=== PATIENT | female | born 1980 | race Caucasian/White ===

== ENCOUNTER 2018-07-09 09:44 | Inpatient (IN) | payer OTHER ==
[~2018-07-09] VITALS: Ht 165.1 cm; Wt 63.1 kg
--- NOTE | 2018-07-09 10:04 | NUR ---
Pt assessed. [facility] for SI. Pt is [place] speaking, daughter at BS. Per daughter, pt was recently hospialized with weakness and was dx with DM. Since d/c home, daughter states that she has been "saying she loves us like she is saying goodbye", and has been having increased trouble walking in past few weeks. Per daughter, this am pt stated her "feet and hands are numb and I could stab them with a knife and would not feel it." Pt has not been sleeping per daughter. This am, family was driving and pt stated she wanted to jump from the car so they stopped the car and pt laid down on the ground and per daughter "started shaking and then closed her eyes and has not opened them since." No previous attempts or psychiatric hx per daughter. Per daughter, no drug or alcohol use. Pt responds only to painful stimuli, will not open eyes. VS stable Room cleared for SISIMRAN at . Will cont to monitor
--- NOTE | 2018-07-09 10:42 | NUR ---
SITTER MONITORING FROM HALLWAY FOR SAFETY. 5 LEAD MONITORING IN PROGRESS. REAR CURTAIN UP FOR MONITORING. FAMILY AT BEDSIDE.
[2018-07-09 10:51] LABS: BASOPHILS % (AUTO) 0 % (0-1); EOSINOPHILS % (AUTO) 0 % (1-7); LYMPHOCYTES # (AUTO) 0.58 x10^3/uL (1-3.4); LYMPHOCYTES % (AUTO) 6 % (22-44); MD NO; MEAN CORPUSCULAR HEMOGLOBIN 32.3 pg (27.0-34.8); MEAN CORPUSCULAR HGB CONC 33.6 g/dL (32.4-35.8); MEAN CORPUSCULAR VOLUME 96.2 fL (80-100); MEAN PLATELET VOLUME 7.5 fL (7.4-10.4); MONOCYTES % (AUTO) 4 % (2-9); NEUTROPHILS # (AUTO) 8.45 x10^3/uL (1.8-6.8); NEUTROPHILS % (AUTO) 90 % (42-75); PLATELET COUNT 184 x10^3/uL (130-400); RED CELL DISTRIBUTION WIDTH 13.4 % (9.6-15.2)
--- NOTE | 2018-07-09 10:52 | NUR ---
Shannan notified of BS 119
[2018-07-09 10:58] LABS: HCG UR SG 1.015 (1.003-1.030); MICROSCOPIC INDICATED
[2018-07-09 10:59] LABS: CULTURE INDICATED? YES
[2018-07-09 11:00] LABS: AMPHETAMINE SCREEN, URINE Negative (Negative); BARBITURATE SCREEN, URINE Negative (Negative); BENZODIAZEPINE SCREEN, URINE Negative (Negative); CANNABINOID SCREEN, URINE Negative (Negative); COCAINE SCREEN, URINE Negative (Negative); METHADONE SCREEN, URINE Negative (Negative); OPIATE SCREEN, URINE Negative (Negative)
[2018-07-09 11:03] LABS: ALBUMIN 3.2 g/dL (3.4-5.0); CALCIUM 8.2 mg/dL (8.5-10.1)
[2018-07-09 11:11] LABS: ANION GAP 12 mmol/L (5-15); CHLORIDE 110 mmol/L (98-107)
[2018-07-09 11:13] LABS: ALANINE AMINOTRANSFERASE 68 U/L (12-78); ALKALINE PHOSPHATASE 73 U/L (45-117); BILIRUBIN,TOTAL 1.4 mg/dL (0.2-1.0); CREATININE 0.54 mg/dL (0.55-1.02); FREE T4 (FREE THYROXINE) 1.44 ng/dL (0.76-1.46); TOTAL PROTEIN 6.2 g/dL (6.4-8.2)
[2018-07-09 11:15] LABS: SALICYLATE LEVEL < 1.7 mg/dL (2.8-20.0)
--- NOTE | 2018-07-09 11:19 | NUR ---
Shannan notified of Potassium level 2.4
--- NOTE | 2018-07-09 11:20 | NUR ---
Pt now denying SI. Pt stating that she does not recall what happened this am. Pt remains cooperative and calm. Will cont to monitor
[2018-07-09] MEDS ORDERED: POTASSIUM CHLORIDE 40 MEQ in SODIUM CHLORIDE 0.9% 500 ML IV ONE (12:00)
[2018-07-09] MEDS ORDERED: POTASSIUM CHLORIDE 20 MEQ TAB.ER.PRT ONE (12:00)
[2018-07-09] MEDS ORDERED: PLEASE ENTER ALLERGIES MC SCH (12:00)
[2018-07-09] MEDS ORDERED: CEFTRIAXONE PMX 1GM/50ML 50 ML IV ONE (12:00)
[2018-07-09] MEDS ORDERED: CEFTRIAXONE PMX 1GM/50ML 50 ML ONE (12:00)
[2018-07-09] MEDS ORDERED: POTASSIUM CHLORIDE 20 MEQ TAB.ER.PRT PO ONE (12:00)
--- NOTE | 2018-07-09 12:11 | NUR ---
LUNCH RN: PT MEDICATED PER MAR FOR LOW K+ AND STARTED ABX. PT CONNECTED TO ALL MONITORING, HTN NOTED. EDEN. SITTER IN [place] FOR CONTINUOUS MONITORING, AWAITING ADMIT ORDER AT THIS TIME.
--- NOTE | 2018-07-09 12:29 | NUR ---
LUNCH RN: MD TO BEDSIDE TO UPDATE PT AND FAMILY ON POC
--- NOTE | 2018-07-09 13:42 | NUR ---
Pt asleep at this time. NAD. Will cont to monitor
--- NOTE | 2018-07-09 14:32 | NUR ---
Rounded on pt. Reports she is feeling better, dozing intermittently. Family at BS, updated on POC.
[2018-07-09] MEDS ORDERED: INSU100V13 SQ (14:35)
[2018-07-09] MEDS ORDERED: INSU100I18 SQ (14:36)
[2018-07-09] MEDS ORDERED: LISI-420 PO (14:37)
[2018-07-09] MEDS ORDERED: SPIR25TA5 PO (14:38)
[2018-07-09] MEDS ORDERED: METF10007 PO (14:38)
[2018-07-09] MEDS ORDERED: POTA10TA31 PO (14:40)
[2018-07-09] MEDS ORDERED: MAGN400T50 PO (14:41)
[2018-07-09] MEDS ORDERED: ERGO500017 PO (14:42)
--- NOTE | 2018-07-09 15:41 | NUR ---
Ready for transfer, report to Jose COCHRAN
[2018-07-09 16:16] VITALS: BP 152/88
[2018-07-09] MEDS ORDERED: morphine SULFATE 10 MG/ML, 1ML IVPush PRN (17:30)
[2018-07-09] MEDS ORDERED: PROMETHAZINE 25 MG/ML, 1ML IM PRN (17:30)
[2018-07-09] MEDS ORDERED: ONDANSETRON 2MG/ML, 2ML IVPush PRN (17:30)
[2018-07-09] MEDS: INSULIN LISPRO 100 UNITS/ML, PEN SQ-INSULIN SCH ×2 (17:30→21:03)
[2018-07-09] MEDS ORDERED: ACETAMINOPHEN 325 MG TABLET PO PRN (17:30)
[2018-07-09] MEDS ORDERED: ONDANSETRON ODT 4 MG PO PRN (17:30)
[2018-07-09] MEDS ORDERED: OXYcodone IR 5MG TABLET PO PRN (17:30)
[2018-07-09] MEDS: POTASSIUM CHLORIDE 20 MEQ TAB.ER.PRT PO SCH (18:23)
[2018-07-09] MEDS: POTASSIUM CHLORIDE 40 MEQ in D5%-0.9% NACL 1,000 ML IV SCH (18:23)
[2018-07-09] MEDS: ERGOCALCIFEROL 50,000 UNIT CAPSULE PO SCH (18:23)
[2018-07-09 18:28] LABS: HEMOGLOBIN A1C 10.4 % (4.2-6.3)
[2018-07-09 19:14] VITALS: BP 149/89
[2018-07-09] MEDS: INSULIN GLARGINE 100 UNITS/ML, PEN SQ-INSULIN SCH (21:04)
[2018-07-09] MEDS: GABAPENTIN 100 MG CAPSULE PO SCH (21:04)
[2018-07-10 00:41] VITALS: BP 164/93
[2018-07-10] MEDS: POTASSIUM CHLORIDE 40 MEQ in D5%-0.9% NACL 1,000 ML IV SCH (02:42)
[2018-07-10 05:40] LABS: BASOPHILS # (AUTO) 0.02 x10^3/uL (0-0.1); BASOPHILS % (AUTO) 0 % (0-1); EOSINOPHILS % (AUTO) 0 % (1-7); LYMPHOCYTES # (AUTO) 0.79 x10^3/uL (1-3.4); LYMPHOCYTES % (AUTO) 10 % (22-44); MD NO; MEAN CORPUSCULAR HEMOGLOBIN 31.4 pg (27.0-34.8); MEAN CORPUSCULAR HGB CONC 32.6 g/dL (32.4-35.8); MEAN CORPUSCULAR VOLUME 96.4 fL (80-100); MEAN PLATELET VOLUME 7.7 fL (7.4-10.4); MONOCYTES # (AUTO) 0.39 x10^3/uL (0.2-0.8); MONOCYTES % (AUTO) 5 % (2-9); NEUTROPHILS # (AUTO) 7.19 x10^3/uL (1.8-6.8); NEUTROPHILS % (AUTO) 86 % (42-75); PLATELET COUNT 161 x10^3/uL (130-400); RED BLOOD COUNT 4.51 x10^6/uL (3.82-5.3); RED CELL DISTRIBUTION WIDTH 13.7 % (9.6-15.2)
[2018-07-10 06:03] LABS: ALBUMIN 2.7 g/dL (3.4-5.0); CALCIUM 7.9 mg/dL (8.5-10.1); CHLORIDE 114 mmol/L (98-107)
[2018-07-10 06:09] LABS: ALANINE AMINOTRANSFERASE 63 U/L (12-78); ALKALINE PHOSPHATASE 68 U/L (45-117); ANION GAP 8 mmol/L (5-15); BILIRUBIN,TOTAL 1.2 mg/dL (0.2-1.0); CHOL/HDL RATIO 2.8; CHOLESTEROL, TOTAL 117 mg/dL (140-239); CREATININE 0.56 mg/dL (0.55-1.02); HDL CHOL % 36 % (28-40); HDL CHOLESTEROL (DIRECT) 42 mg/dL (40-60); LDL CHOLESTEROL,CALCULATED 48 mg/dL (54-169); LDL/HDL RATIO 1.1 (0.5-3.0); TOTAL PROTEIN 5.4 g/dL (6.4-8.2); TRIGLYCERIDES 135 mg/dL (50-200); VLDL CHOLESTEROL 27 mg/dL (0-25)
[2018-07-10 06:57] VITALS: BP 150/89
[2018-07-10] MEDS: LISINOPRIL 20 MG TABLET PO SCH (10:15)
[2018-07-10] MEDS: SPIRONOLACTONE 25 MG TABLET PO SCH (10:15)
[2018-07-10] MEDS: MAGNESIUM OXIDE 400 MG TABLET PO SCH (10:15)
[2018-07-10] MEDS: POTASSIUM CHLORIDE 20 MEQ TAB.ER.PRT PO SCH ×2 (10:15→16:47)
[2018-07-10] MEDS: GABAPENTIN 100 MG CAPSULE PO SCH ×3 (10:15→20:40)
[2018-07-10] MEDS: INSULIN LISPRO 100 UNITS/ML, PEN SQ-INSULIN SCH ×4 (10:15→20:39)
[2018-07-10] MEDS ORDERED: CEFTRIAXONE PMX 1GM/50ML 50 ML IV SCH (11:00)
[2018-07-10 13:27] VITALS: BP 157/92
[2018-07-10] MEDS ORDERED: INSU100I11 SQ-INSULIN (14:47)
[2018-07-10] MEDS ORDERED: INSU100I13 SQ-INSULIN (14:47)
[2018-07-10] MEDS ORDERED: POTA20TA14 PO (14:47)
[2018-07-10] MEDS ORDERED: GABA-826 PO (14:47)
[2018-07-10] MEDS ORDERED: CEFD300C37 PO (14:47)
[2018-07-10] MEDS ORDERED: SERT50TA PO (14:49)
[2018-07-10] MEDS: SERTRALINE 50MG TABLET PO SCH (16:47)
[2018-07-10] MEDS: CEFDINIR 300 MG CAPSULE PO SCH (20:37)
[2018-07-10] MEDS: INSULIN GLARGINE 100 UNITS/ML, PEN SQ-INSULIN SCH (20:40)
[2018-07-10 21:17] VITALS: BP 161/101
[2018-07-10 21:28] VITALS: BP 167/95
[2018-07-10] MEDS ORDERED: DIPHENHYDRAMINE 50 MG CAPSULE PO PRN (22:00)
[2018-07-11] VITALS (7 sets, daily range): BP systolic 143–217; BP diastolic 85–115
[2018-07-11] MEDS: hydrALAzine 20 MG/ML, 1ML IVPush PRN ×2 (01:26→13:21)
[2018-07-11] MEDS: MAGNESIUM OXIDE 400 MG TABLET PO SCH (08:02)
[2018-07-11] MEDS: SERTRALINE 50MG TABLET PO SCH (08:03)
[2018-07-11] MEDS: SPIRONOLACTONE 25 MG TABLET PO SCH (08:03)
[2018-07-11] MEDS: LISINOPRIL 20 MG TABLET PO SCH (08:03)
[2018-07-11] MEDS: CEFDINIR 300 MG CAPSULE PO SCH ×2 (08:03→20:10)
[2018-07-11] MEDS: GABAPENTIN 100 MG CAPSULE PO SCH ×3 (08:04→20:11)
[2018-07-11] MEDS: POTASSIUM CHLORIDE 20 MEQ TAB.ER.PRT PO SCH ×3 (08:04→20:11)
[2018-07-11] MEDS: INSULIN LISPRO 100 UNITS/ML, PEN SQ-INSULIN SCH ×5 (08:08→20:04)
[2018-07-11 09:46] LABS: ANION GAP 8 mmol/L (5-15); CHLORIDE 111 mmol/L (98-107); CREATININE 0.65 mg/dL (0.55-1.02)
[2018-07-11] MEDS ORDERED: POTA20TA14 PO (16:43)
[2018-07-11] MEDS ORDERED: POTASSIUM CHLORIDE 40 MEQ in SODIUM CHLORIDE 0.9% 500 ML IV ONE (17:00)
[2018-07-11] MEDS: INSULIN GLARGINE 100 UNITS/ML, PEN SQ-INSULIN SCH (20:11)
[2018-07-12 00:25] VITALS: BP 166/101
[2018-07-12 00:34] VITALS: BP 166/101
[2018-07-12] MEDS: hydrALAzine 20 MG/ML, 1ML IVPush PRN (00:35)
[2018-07-12 00:58] VITALS: BP 139/87
[2018-07-12 05:40] LABS: ANION GAP 8 mmol/L (5-15); CALCIUM 8.9 mg/dL (8.5-10.1); CHLORIDE 116 mmol/L (98-107); CREATININE 0.66 mg/dL (0.55-1.02)
[2018-07-12 07:31] VITALS: BP 150/92
[2018-07-12] MEDS: CEFDINIR 300 MG CAPSULE PO SCH ×2 (08:37→21:17)
[2018-07-12] MEDS: GABAPENTIN 100 MG CAPSULE PO SCH ×3 (08:37→21:17)
[2018-07-12] MEDS: POTASSIUM CHLORIDE 20 MEQ TAB.ER.PRT PO SCH ×3 (08:37→21:17)
[2018-07-12] MEDS: SERTRALINE 50MG TABLET PO SCH (08:38)
[2018-07-12] MEDS: SPIRONOLACTONE 25 MG TABLET PO SCH (08:38)
[2018-07-12] MEDS: MAGNESIUM OXIDE 400 MG TABLET PO SCH (08:38)
[2018-07-12] MEDS: INSULIN LISPRO 100 UNITS/ML, PEN SQ-INSULIN SCH ×4 (08:39→21:19)
[2018-07-12] MEDS: LISINOPRIL 20 MG TABLET PO SCH (08:39)
[2018-07-12 12:49] VITALS: BP 153/93
[2018-07-12] MEDS ORDERED: GADOBUTROL 7.5 MMOL/7.5 ML PFS ONE (16:00)
[2018-07-12] MEDS ORDERED: OMNIPAQUE 350 MG/ML, 100ML BOTTLE ONE (16:29)
[2018-07-12 19:17] VITALS: BP 159/92
[2018-07-12] MEDS: INSULIN GLARGINE 100 UNITS/ML, PEN SQ-INSULIN SCH (21:19)
[2018-07-12] MEDS ORDERED: DEXAMETHASONE 1 MG TABLET PO ONE (23:00)
[2018-07-13 00:47] VITALS: BP 152/89
[2018-07-13 07:10] VITALS: BP 147/93
[2018-07-13] MEDS: POTASSIUM CHLORIDE 20 MEQ TAB.ER.PRT PO SCH ×3 (08:35→21:00)
[2018-07-13] MEDS: SPIRONOLACTONE 25 MG TABLET PO SCH (08:35)
[2018-07-13] MEDS: CEFDINIR 300 MG CAPSULE PO SCH ×2 (08:35→21:00)
[2018-07-13] MEDS: GABAPENTIN 100 MG CAPSULE PO SCH ×3 (08:35→21:00)
[2018-07-13] MEDS: MAGNESIUM OXIDE 400 MG TABLET PO SCH (08:35)
[2018-07-13] MEDS: LISINOPRIL 20 MG TABLET PO SCH (08:35)
[2018-07-13] MEDS: INSULIN LISPRO 100 UNITS/ML, PEN SQ-INSULIN SCH ×4 (08:36→21:02)
[2018-07-13] MEDS: SERTRALINE 50MG TABLET PO SCH (08:36)
[2018-07-13 09:45] LABS: ANION GAP 7 mmol/L (5-15); CALCIUM 8.5 mg/dL (8.5-10.1); CHLORIDE 113 mmol/L (98-107); CREATININE 0.65 mg/dL (0.55-1.02)
[2018-07-13 14:00] VITALS: BP 163/101
[2018-07-13] MEDS ORDERED: POTASSIUM CHLORIDE 40 MEQ in SODIUM CHLORIDE 0.9% 500 ML IV ONE (14:00)
[2018-07-13 19:08] VITALS: BP 150/91
[2018-07-13] MEDS: INSULIN GLARGINE 100 UNITS/ML, PEN SQ-INSULIN SCH (21:01)
[2018-07-14 00:44] VITALS: BP 154/94
[2018-07-14] MEDS: POTASSIUM CHLORIDE 20 MEQ TAB.ER.PRT PO SCH ×3 (08:44→21:34)
[2018-07-14] MEDS: SERTRALINE 50MG TABLET PO SCH (08:44)
[2018-07-14 08:45] VITALS: BP 144/89
[2018-07-14] MEDS: CEFDINIR 300 MG CAPSULE PO SCH ×2 (08:45→21:34)
[2018-07-14] MEDS: SPIRONOLACTONE 25 MG TABLET PO SCH (08:45)
[2018-07-14] MEDS: MAGNESIUM OXIDE 400 MG TABLET PO SCH (08:45)
[2018-07-14] MEDS: GABAPENTIN 100 MG CAPSULE PO SCH ×3 (08:45→21:35)
[2018-07-14] MEDS: LISINOPRIL 20 MG TABLET PO SCH (08:46)
[2018-07-14] MEDS: INSULIN LISPRO 100 UNITS/ML, PEN SQ-INSULIN SCH ×4 (08:47→21:36)
[2018-07-14 12:45] LABS: ALBUMIN 2.8 g/dL (3.4-5.0); ANION GAP 9 mmol/L (5-15); CALCIUM 8.4 mg/dL (8.5-10.1); CHLORIDE 111 mmol/L (98-107)
[2018-07-14 12:49] LABS: ALANINE AMINOTRANSFERASE 107 U/L (12-78); ALKALINE PHOSPHATASE 79 U/L (45-117); BILIRUBIN,TOTAL 1.3 mg/dL (0.2-1.0); CREATININE 0.66 mg/dL (0.55-1.02); TOTAL PROTEIN 5.8 g/dL (6.4-8.2)
[2018-07-14] MEDS: SODIUM CHLORIDE 0.45% 1,000 ML IV SCH (14:23)
[2018-07-14 15:48] VITALS: BP 148/90
[2018-07-14 18:53] VITALS: BP 118/72
[2018-07-14] MEDS: INSULIN GLARGINE 100 UNITS/ML, PEN SQ-INSULIN SCH (21:35)
[2018-07-15] MEDS: SODIUM CHLORIDE 0.45% 1,000 ML IV SCH ×3 (00:21→21:08)
[2018-07-15 01:42] VITALS: BP 142/75
[2018-07-15 06:18] LABS: ALBUMIN 2.6 g/dL (3.4-5.0); ANION GAP 6 mmol/L (5-15); CALCIUM 7.9 mg/dL (8.5-10.1); CHLORIDE 110 mmol/L (98-107)
[2018-07-15 06:22] LABS: ALANINE AMINOTRANSFERASE 131 U/L (12-78); ALKALINE PHOSPHATASE 81 U/L (45-117); BILIRUBIN,TOTAL 1.2 mg/dL (0.2-1.0); CREATININE 0.56 mg/dL (0.55-1.02); TOTAL PROTEIN 5.5 g/dL (6.4-8.2)
[2018-07-15] MEDS: INSULIN LISPRO 100 UNITS/ML, PEN SQ-INSULIN SCH ×4 (08:37→21:00)
[2018-07-15 08:42] VITALS: BP 136/87
[2018-07-15] MEDS: GABAPENTIN 100 MG CAPSULE PO SCH ×3 (10:03→20:59)
[2018-07-15] MEDS: LISINOPRIL 20 MG TABLET PO SCH (10:03)
[2018-07-15] MEDS: CEFDINIR 300 MG CAPSULE PO SCH ×2 (10:03→20:58)
[2018-07-15] MEDS: MAGNESIUM OXIDE 400 MG TABLET PO SCH (10:03)
[2018-07-15] MEDS: SPIRONOLACTONE 25 MG TABLET PO SCH (10:03)
[2018-07-15] MEDS: SERTRALINE 50MG TABLET PO SCH (10:04)
[2018-07-15] MEDS: POTASSIUM CHLORIDE 20 MEQ TAB.ER.PRT PO SCH ×3 (10:04→20:59)
[2018-07-15 12:10] VITALS: BP 160/94
[2018-07-15 20:00] VITALS: BP 152/89
[2018-07-15] MEDS: INSULIN GLARGINE 100 UNITS/ML, PEN SQ-INSULIN SCH (21:00)
[2018-07-16 01:39] VITALS: BP 161/104
[2018-07-16] MEDS: hydrALAzine 20 MG/ML, 1ML IVPush PRN (01:58)
[2018-07-16 05:17] LABS: CALCIUM 7.6 mg/dL (8.5-10.1); CHLORIDE 108 mmol/L (98-107)
[2018-07-16 05:21] LABS: ANION GAP 7 mmol/L (5-15); CREATININE 0.41 mg/dL (0.55-1.02)
[2018-07-16] MEDS: SODIUM CHLORIDE 0.45% 1,000 ML IV SCH ×2 (06:42→21:05)
[2018-07-16] MEDS: INSULIN LISPRO 100 UNITS/ML, PEN SQ-INSULIN SCH ×4 (07:00→21:17)
[2018-07-16] MEDS ORDERED: POTASSIUM CHLORIDE 40 MEQ in SODIUM CHLORIDE 0.9% 500 ML IV ONE (08:00)
[2018-07-16 08:40] VITALS: BP 108/74
[2018-07-16] MEDS: GABAPENTIN 100 MG CAPSULE PO SCH ×3 (08:41→21:06)
[2018-07-16] MEDS: CEFDINIR 300 MG CAPSULE PO SCH ×2 (08:41→21:06)
[2018-07-16] MEDS: MAGNESIUM OXIDE 400 MG TABLET PO SCH (08:42)
[2018-07-16] MEDS: SERTRALINE 50MG TABLET PO SCH (08:42)
[2018-07-16] MEDS: LISINOPRIL 20 MG TABLET PO SCH (08:42)
[2018-07-16] MEDS: SPIRONOLACTONE 25 MG TABLET PO SCH (08:42)
[2018-07-16] MEDS: POTASSIUM CHLORIDE 20 MEQ TAB.ER.PRT PO SCH ×3 (12:58→21:06)
[2018-07-16 15:33] VITALS: BP 148/91
[2018-07-16] MEDS: ERGOCALCIFEROL 50,000 UNIT CAPSULE PO SCH (16:25)
[2018-07-16 18:29] LABS: ANION GAP 7 mmol/L (5-15); CALCIUM 7.6 mg/dL (8.5-10.1); CHLORIDE 111 mmol/L (98-107); CREATININE 0.76 mg/dL (0.55-1.02)
[2018-07-16 19:55] VITALS: BP 143/88
[2018-07-16] MEDS: INSULIN GLARGINE 100 UNITS/ML, PEN SQ-INSULIN SCH (21:17)
[2018-07-17 01:55] VITALS: BP 136/83
[2018-07-17] MEDS: SODIUM CHLORIDE 0.45% 1,000 ML IV SCH ×2 (06:30→16:28)
[2018-07-17] MEDS: POTASSIUM CHLORIDE 20 MEQ TAB.ER.PRT PO SCH ×4 (06:30→20:57)
[2018-07-17] MEDS: INSULIN LISPRO 100 UNITS/ML, PEN SQ-INSULIN SCH ×4 (07:00→20:58)
[2018-07-17 08:29] LABS: ANION GAP 6 mmol/L (5-15); CALCIUM 7.9 mg/dL (8.5-10.1); CHLORIDE 111 mmol/L (98-107); CREATININE 0.48 mg/dL (0.55-1.02)
[2018-07-17 08:47] VITALS: BP 114/81
[2018-07-17] MEDS: CEFDINIR 300 MG CAPSULE PO SCH ×2 (09:16→20:57)
[2018-07-17] MEDS: MAGNESIUM OXIDE 400 MG TABLET PO SCH (09:16)
[2018-07-17] MEDS: GABAPENTIN 100 MG CAPSULE PO SCH ×3 (09:16→20:57)
[2018-07-17] MEDS: SPIRONOLACTONE 25 MG TABLET PO SCH (09:16)
[2018-07-17] MEDS: LISINOPRIL 20 MG TABLET PO SCH (09:17)
[2018-07-17] MEDS: SERTRALINE 50MG TABLET PO SCH (09:17)
[2018-07-17 14:35] VITALS: BP 117/78
[2018-07-17 19:56] VITALS: BP 133/84
[2018-07-17] MEDS: INSULIN GLARGINE 100 UNITS/ML, PEN SQ-INSULIN SCH (20:59)
[2018-07-17] MEDS ORDERED: INSULIN GLARGINE 100 UNITS/ML, PEN SQ-INSULIN SCH (21:00)
[2018-07-18 00:18] VITALS: BP 132/98
[2018-07-18] MEDS: SODIUM CHLORIDE 0.45% 1,000 ML IV SCH ×2 (02:38→14:30)
[2018-07-18 05:47] LABS: ANION GAP 5 mmol/L (5-15); CALCIUM 8.1 mg/dL (8.5-10.1); CHLORIDE 109 mmol/L (98-107); CREATININE 0.47 mg/dL (0.55-1.02)
[2018-07-18] MEDS: POTASSIUM CHLORIDE 20 MEQ TAB.ER.PRT PO SCH ×2 (05:52→21:57)
[2018-07-18] MEDS: INSULIN LISPRO 100 UNITS/ML, PEN SQ-INSULIN SCH ×4 (07:00→21:56)
[2018-07-18 08:03] VITALS: BP 131/90
[2018-07-18] MEDS: GABAPENTIN 100 MG CAPSULE PO SCH ×3 (09:03→21:57)
[2018-07-18] MEDS: SERTRALINE 50MG TABLET PO SCH (09:03)
[2018-07-18] MEDS: MAGNESIUM OXIDE 400 MG TABLET PO SCH (09:03)
[2018-07-18] MEDS: LISINOPRIL 20 MG TABLET PO SCH (09:04)
[2018-07-18] MEDS: SPIRONOLACTONE 25 MG TABLET PO SCH (09:04)
[2018-07-18] MEDS: CEFDINIR 300 MG CAPSULE PO SCH ×2 (09:04→21:57)
[2018-07-18] MEDS ORDERED: OMNIPAQUE 350 MG/ML, 75ML BOTTLE ONE (12:28)
[2018-07-18 14:03] VITALS: BP 105/72
[2018-07-18 18:57] VITALS: BP 116/83
[2018-07-18] MEDS: INSULIN GLARGINE 100 UNITS/ML, PEN SQ-INSULIN SCH (21:56)
[2018-07-19 00:38] VITALS: BP 132/93
[2018-07-19] MEDS: SODIUM CHLORIDE 0.45% 1,000 ML IV SCH ×3 (01:22→20:48)
[2018-07-19 06:10] LABS: ANION GAP 7 mmol/L (5-15); CALCIUM 8.3 mg/dL (8.5-10.1); CHLORIDE 106 mmol/L (98-107)
[2018-07-19 06:12] LABS: CREATININE 0.67 mg/dL (0.55-1.02)
[2018-07-19 06:18] VITALS: BP 113/81
[2018-07-19] MEDS: INSULIN LISPRO 100 UNITS/ML, PEN SQ-INSULIN SCH ×4 (07:00→20:51)
[2018-07-19] MEDS: SERTRALINE 50MG TABLET PO SCH (07:57)
[2018-07-19] MEDS: LISINOPRIL 20 MG TABLET PO SCH (07:57)
[2018-07-19] MEDS: MAGNESIUM OXIDE 400 MG TABLET PO SCH (07:57)
[2018-07-19] MEDS: POTASSIUM CHLORIDE 20 MEQ TAB.ER.PRT PO SCH ×2 (07:57→20:49)
[2018-07-19] MEDS: CEFDINIR 300 MG CAPSULE PO SCH ×2 (07:57→20:48)
[2018-07-19] MEDS: SPIRONOLACTONE 25 MG TABLET PO SCH (08:02)
[2018-07-19] MEDS: GABAPENTIN 100 MG CAPSULE PO SCH ×3 (08:03→20:48)
[2018-07-19 14:18] VITALS: BP 113/76
[2018-07-19 18:49] VITALS: BP 109/80
[2018-07-19] MEDS ORDERED: INSULIN GLARGINE 100 UNITS/ML, PEN SQ-INSULIN SCH (21:00)
[2018-07-20 00:21] VITALS: BP 119/84
[2018-07-20] MEDS: SODIUM CHLORIDE 0.45% 1,000 ML IV SCH ×3 (05:34→23:54)
[2018-07-20] MEDS: INSULIN LISPRO 100 UNITS/ML, PEN SQ-INSULIN SCH ×4 (07:00→20:22)
[2018-07-20 08:00] VITALS: BP 102/73
[2018-07-20] MEDS ORDERED: LISINOPRIL 20 MG TABLET PO SCH (09:00)
[2018-07-20] MEDS: SERTRALINE 50MG TABLET PO SCH (09:06)
[2018-07-20] MEDS: GABAPENTIN 100 MG CAPSULE PO SCH ×3 (09:06→20:21)
[2018-07-20] MEDS: MAGNESIUM OXIDE 400 MG TABLET PO SCH (09:06)
[2018-07-20] MEDS: POTASSIUM CHLORIDE 20 MEQ TAB.ER.PRT PO SCH ×2 (09:06→20:21)
[2018-07-20] MEDS: SPIRONOLACTONE 25 MG TABLET PO SCH (09:06)
[2018-07-20 14:00] VITALS: BP 94/62
[2018-07-20 19:25] VITALS: BP 99/65
[2018-07-20] MEDS ORDERED: INSULIN GLARGINE 100 UNITS/ML, PEN SQ-INSULIN SCH (21:00)
[2018-07-21 03:38] VITALS: BP 114/83
[2018-07-21 04:53] LABS: ALBUMIN 3.2 g/dL (3.4-5.0); ANION GAP 6 mmol/L (5-15); CALCIUM 8.5 mg/dL (8.5-10.1); CHLORIDE 106 mmol/L (98-107)
[2018-07-21 04:56] LABS: ALANINE AMINOTRANSFERASE 123 U/L (12-78); ALKALINE PHOSPHATASE 103 U/L (45-117); BILIRUBIN,TOTAL 1.1 mg/dL (0.2-1.0); CREATININE 0.69 mg/dL (0.55-1.02); TOTAL PROTEIN 6.3 g/dL (6.4-8.2)
[2018-07-21] MEDS: INSULIN LISPRO 100 UNITS/ML, PEN SQ-INSULIN SCH ×4 (07:00→20:36)
[2018-07-21 07:44] VITALS: BP 100/71
[2018-07-21] MEDS: GABAPENTIN 100 MG CAPSULE PO SCH ×3 (08:32→20:35)
[2018-07-21] MEDS: SERTRALINE 50MG TABLET PO SCH (08:32)
[2018-07-21] MEDS: MAGNESIUM OXIDE 400 MG TABLET PO SCH (08:32)
[2018-07-21] MEDS: SPIRONOLACTONE 25 MG TABLET PO SCH (08:32)
[2018-07-21] MEDS ORDERED: LISINOPRIL 20 MG TABLET PO SCH (09:00)
[2018-07-21 13:53] VITALS: BP 96/65
[2018-07-21] MEDS ORDERED: SODIUM CHLORIDE 0.45% 1,000 ML IV SCH (14:30)
[2018-07-21 20:46] VITALS: BP 92/66
[2018-07-21] MEDS ORDERED: INSULIN GLARGINE 100 UNITS/ML, PEN SQ-INSULIN SCH (21:00)
[2018-07-22 01:11] VITALS: BP 100/70
[2018-07-22] MEDS: INSULIN LISPRO 100 UNITS/ML, PEN SQ-INSULIN SCH ×4 (07:00→20:41)
[2018-07-22 07:03] VITALS: BP 99/69
[2018-07-22] MEDS: SERTRALINE 50MG TABLET PO SCH (08:21)
[2018-07-22] MEDS: SPIRONOLACTONE 25 MG TABLET PO SCH (08:22)
[2018-07-22] MEDS: LISINOPRIL 5 MG TABLET PO SCH (08:22)
[2018-07-22] MEDS: GABAPENTIN 100 MG CAPSULE PO SCH ×3 (08:22→20:40)
[2018-07-22] MEDS: MAGNESIUM OXIDE 400 MG TABLET PO SCH (08:22)
[2018-07-22 13:00] VITALS: BP 116/73
[2018-07-22 13:49] VITALS: BP 89/61
[2018-07-22 15:41] VITALS: BP 101/72
[2018-07-22 17:27] LABS: BASOPHILS # (AUTO) 0.02 x10^3/uL (0-0.1); BASOPHILS % (AUTO) 0 % (0-1); EOSINOPHILS # (AUTO) 0.01 x10^3/uL (0-0.4); EOSINOPHILS % (AUTO) 0 % (1-7); LYMPHOCYTES # (AUTO) 1.27 x10^3/uL (1-3.4); LYMPHOCYTES % (AUTO) 19 % (22-44); MD NO; MEAN CORPUSCULAR HEMOGLOBIN 32.4 pg (27.0-34.8); MEAN CORPUSCULAR HGB CONC 34.1 g/dL (32.4-35.8); MEAN CORPUSCULAR VOLUME 95.1 fL (80-100); MONOCYTES # (AUTO) 0.67 x10^3/uL (0.2-0.8); MONOCYTES % (AUTO) 10 % (2-9); NEUTROPHILS # (AUTO) 4.79 x10^3/uL (1.8-6.8); NEUTROPHILS % (AUTO) 71 % (42-75); PLATELET COUNT 185 x10^3/uL (130-400); RED BLOOD COUNT 4.49 x10^6/uL (3.82-5.3); RED CELL DISTRIBUTION WIDTH 14.3 % (9.6-15.2)
[2018-07-22 18:39] VITALS: BP 95/65
[2018-07-22] MEDS ORDERED: INSULIN GLARGINE 100 UNITS/ML, PEN SQ-INSULIN SCH (21:00)
[2018-07-23] VITALS (11 sets, daily range): BP systolic 67–105; BP diastolic 42–75
[2018-07-23] MEDS: INSULIN LISPRO 100 UNITS/ML, PEN SQ-INSULIN SCH ×4 (07:00→22:35)
[2018-07-23] MEDS: GABAPENTIN 100 MG CAPSULE PO SCH ×3 (08:32→22:35)
[2018-07-23] MEDS: LISINOPRIL 5 MG TABLET PO SCH (08:32)
[2018-07-23] MEDS: SERTRALINE 50MG TABLET PO SCH (08:32)
[2018-07-23] MEDS: MAGNESIUM OXIDE 400 MG TABLET PO SCH (08:32)
[2018-07-23 08:33] LABS: CULTURE INDICATED? YES; MICROSCOPIC INDICATED
[2018-07-23] MEDS ORDERED: CEFDINIR 300 MG CAPSULE PO SCH (10:30)
--- NOTE | 2018-07-23 15:59 | NUR ---
ULICES WELSH - Fall Risk Medications present and NOT receiving anticoagulants. LISINOPRIL AND SERTRALINE Signed: 07/23/18 at 1559 by Coral SCOTT
[2018-07-23] MEDS ORDERED: SODIUM CHLORIDE 0.9% 500 ML IV SCH (17:00)
[2018-07-23] MEDS: ERGOCALCIFEROL 50,000 UNIT CAPSULE PO SCH (18:34)
[2018-07-23] MEDS: CEFTRIAXONE PMX 1GM/50ML 50 ML IV SCH (18:34)
[2018-07-23] MEDS: INSULIN GLARGINE 100 UNITS/ML, PEN SQ-INSULIN SCH (22:35)
[2018-07-24] VITALS (10 sets, daily range): BP systolic 105–118; BP diastolic 62–83
[2018-07-24 05:50] LABS: ALANINE AMINOTRANSFERASE 100 U/L (12-78); ALBUMIN 2.6 g/dL (3.4-5.0); ANION GAP 6 mmol/L (5-15); CALCIUM 8.2 mg/dL (8.5-10.1); CHLORIDE 110 mmol/L (98-107); CREATININE 0.59 mg/dL (0.55-1.02)
[2018-07-24 05:52] LABS: ALKALINE PHOSPHATASE 86 U/L (45-117); BILIRUBIN,TOTAL 0.8 mg/dL (0.2-1.0); TOTAL PROTEIN 5.8 g/dL (6.4-8.2)
[2018-07-24 06:17] LABS: BASOPHILS # (AUTO) 0.01 x10^3/uL (0-0.1); BASOPHILS % (AUTO) 0 % (0-1); EOSINOPHILS % (AUTO) 0 % (1-7); LYMPHOCYTES # (AUTO) 1.15 x10^3/uL (1-3.4); LYMPHOCYTES % (AUTO) 22 % (22-44); MD NO; MEAN CORPUSCULAR HEMOGLOBIN 32.2 pg (27.0-34.8); MEAN CORPUSCULAR HGB CONC 33.7 g/dL (32.4-35.8); MEAN CORPUSCULAR VOLUME 95.6 fL (80-100); MEAN PLATELET VOLUME 7.9 fL (7.4-10.4); MONOCYTES # (AUTO) 0.64 x10^3/uL (0.2-0.8); MONOCYTES % (AUTO) 12 % (2-9); NEUTROPHILS # (AUTO) 3.41 x10^3/uL (1.8-6.8); NEUTROPHILS % (AUTO) 65 % (42-75); PLATELET COUNT 172 x10^3/uL (130-400); RED BLOOD COUNT 3.88 x10^6/uL (3.82-5.3); RED CELL DISTRIBUTION WIDTH 14.4 % (9.6-15.2)
[2018-07-24] MEDS: INSULIN LISPRO 100 UNITS/ML, PEN SQ-INSULIN SCH ×4 (07:00→21:14)
[2018-07-24] MEDS: SERTRALINE 50MG TABLET PO SCH (08:37)
[2018-07-24] MEDS: GABAPENTIN 100 MG CAPSULE PO SCH ×3 (08:37→20:36)
[2018-07-24] MEDS: MAGNESIUM OXIDE 400 MG TABLET PO SCH (08:37)
[2018-07-24] MEDS: CEFTRIAXONE PMX 1GM/50ML 50 ML IV SCH (17:35)
[2018-07-24] MEDS: INSULIN GLARGINE 100 UNITS/ML, PEN SQ-INSULIN SCH (20:37)
[2018-07-25] VITALS (7 sets, daily range): BP systolic 107–123; BP diastolic 74–90
[2018-07-25] MEDS: INSULIN LISPRO 100 UNITS/ML, PEN SQ-INSULIN SCH ×4 (08:10→20:53)
[2018-07-25] MEDS: GABAPENTIN 100 MG CAPSULE PO SCH ×3 (08:47→20:51)
[2018-07-25] MEDS: SERTRALINE 50MG TABLET PO SCH (08:47)
[2018-07-25] MEDS: MAGNESIUM OXIDE 400 MG TABLET PO SCH (08:47)
[2018-07-25] MEDS: CEFTRIAXONE PMX 1GM/50ML 50 ML IV SCH (16:53)
[2018-07-25] MEDS: INSULIN GLARGINE 100 UNITS/ML, PEN SQ-INSULIN SCH (20:53)
[2018-07-26 01:27] VITALS: BP 118/82
[2018-07-26] MEDS: INSULIN LISPRO 100 UNITS/ML, PEN SQ-INSULIN SCH ×4 (07:16→21:13)
[2018-07-26] MEDS: MAGNESIUM OXIDE 400 MG TABLET PO SCH (08:08)
[2018-07-26] MEDS: GABAPENTIN 100 MG CAPSULE PO SCH ×3 (08:08→21:13)
[2018-07-26] MEDS: SERTRALINE 50MG TABLET PO SCH (08:08)
[2018-07-26 08:15] VITALS: BP 118/87
[2018-07-26 08:16] VITALS: BP 117/83
[2018-07-26 14:20] VITALS: BP 127/84
[2018-07-26] MEDS: CEFTRIAXONE PMX 1GM/50ML 50 ML IV SCH (17:14)
[2018-07-26] MEDS: INSULIN GLARGINE 100 UNITS/ML, PEN SQ-INSULIN SCH (21:12)
[2018-07-26 21:22] VITALS: BP 108/77
[2018-07-27 03:18] VITALS: BP 124/87
[2018-07-27 06:19] LABS: CALCIUM 8.8 mg/dL (8.5-10.1); CHLORIDE 107 mmol/L (98-107)
[2018-07-27 06:25] LABS: ALANINE AMINOTRANSFERASE 70 U/L (12-78); ALKALINE PHOSPHATASE 92 U/L (45-117); ANION GAP 6 mmol/L (5-15); BILIRUBIN,TOTAL 0.9 mg/dL (0.2-1.0); TOTAL PROTEIN 6.7 g/dL (6.4-8.2)
[2018-07-27 06:44] LABS: BASOPHILS # (AUTO) 0.02 x10^3/uL (0-0.1); BASOPHILS % (AUTO) 0 % (0-1); EOSINOPHILS # (AUTO) 0.03 x10^3/uL (0-0.4); EOSINOPHILS % (AUTO) 1 % (1-7); LYMPHOCYTES # (AUTO) 1.13 x10^3/uL (1-3.4); LYMPHOCYTES % (AUTO) 22 % (22-44); MD NO; MEAN CORPUSCULAR HEMOGLOBIN 31.5 pg (27.0-34.8); MEAN CORPUSCULAR HGB CONC 33.7 g/dL (32.4-35.8); MEAN CORPUSCULAR VOLUME 93.5 fL (80-100); MEAN PLATELET VOLUME 7.4 fL (7.4-10.4); MONOCYTES % (AUTO) 10 % (2-9); NEUTROPHILS # (AUTO) 3.48 x10^3/uL (1.8-6.8); NEUTROPHILS % (AUTO) 67 % (42-75); PLATELET COUNT 215 x10^3/uL (130-400); RED BLOOD COUNT 3.77 x10^6/uL (3.82-5.3); RED CELL DISTRIBUTION WIDTH 14.5 % (9.6-15.2)
[2018-07-27] MEDS: INSULIN LISPRO 100 UNITS/ML, PEN SQ-INSULIN SCH ×2 (07:00→11:37)
[2018-07-27 07:39] VITALS: BP 116/82
[2018-07-27] MEDS: GABAPENTIN 100 MG CAPSULE PO SCH (08:30)
[2018-07-27] MEDS: MAGNESIUM OXIDE 400 MG TABLET PO SCH (08:30)
[2018-07-27] MEDS: SERTRALINE 50MG TABLET PO SCH (08:30)
== END 2018-07-27 15:50 | disposition home or self-care (01) | DRG 644 ==
LOC: ED 11:29 → EDIP 12:34 → 4WST 16:14 → 2N 07-23 14:08 → 4WST 07-23 17:15 → DCLOUNGE 07-27 15:28
PROVIDERS: ADMIT Hospitalist; ATTEND Hospitalist
DX: D35.2 Benign neoplasm of pituitary gland (principal); E24.9 Cushing's syndrome, unspecified; N39.0 Urinary tract infection, site not specified; R45.851 Suicidal ideations; E44.0 Moderate protein-calorie malnutrition; E87.0 Hyperosmolality and hypernatremia; E11.65 Type 2 diabetes mellitus with hyperglycemia; E55.9 Vitamin D deficiency, unspecified; E86.0 Dehydration; F32.9 Major depressive disorder, single episode, unspecified; G47.00 Insomnia, unspecified; I10 Essential (primary) hypertension; Z79.4 Long term (current) use of insulin; Z68.23 Body mass index [BMI] 23.0-23.9, adult; E87.6 Hypokalemia
CPT/HCPCS: 36415; 80375; 82024; 99285; J7042; 70450; 70553; 71045; 71260; 74178; 80048; 80053; 80061; 80307; 81001; 81025; 82088; 82530; 82533; 82962; 83036; 83605; 83735; 84100; 84244; 84439; 84443; 85025; 87086; 93005; 96374; A9585; G0378; J0696; J3480; Q9967; G0480; J0360; J1815; J7040